=== PATIENT | male | born 1950 | race Hispanic/Latino ===

== ENCOUNTER 2019-05-07 10:59 | Inpatient (IN) | payer OTHER ==
[~2019-05-07] VITALS: Ht 175.3 cm; Wt 109.8 kg
[2019-05-07 11:29] LABS: BASOPHILS % (AUTO) 0.4 % (0.0-5.0); EOSINOPHILS % (AUTO) 0.3 % (0.0-8.0); LYMPHOCYTES % (AUTO) 27.8 % (21.0-51.0); MEAN CORPUSCULAR HEMOGLOBIN 28.6 pg (27.0-33.0); MEAN CORPUSCULAR HGB CONC 30.7 g/dL (32.0-36.0); MEAN CORPUSCULAR VOLUME 93.3 fL (79-99); MONOCYTES % (AUTO) 18.6 % (3.0-13.0); NEUTROPHILS % (AUTO) 52.5 % (40.0-77.0); PLATELET COUNT (AUTO) 213 K/uL (130-400); RED BLOOD CELL COUNT(AUTO) 4.93 MIL/uL (4.50-6.20); RED CELL DISTRIBUTION WIDTH 13.1 % (11.0-15.5); WHITE BLOOD COUNT (AUTO) 7.3 K/uL (4.8-10.8)
[2019-05-07] MEDS ORDERED: IPRATROPIUM/ALBUTEROL SULFATE 3 ML SOLUTION IH ONE (11:37)
[2019-05-07 11:46] LABS: POTASSIUM 4.1 mmol/L (3.5-5.1)
[2019-05-07 11:50] LABS: ALBUMIN 3.1 g/dL (3.5-5.0); BILIRUBIN,TOTAL 0.2 mg/dL (0.2-1.0); TOTAL PROTEIN, SERUM 7.6 g/dL (6.0-8.3)
[2019-05-07] MEDS ORDERED: METHYLPREDNISOLONE SOD SUCC 125MG/2ML VIAL ONE (11:52)
[2019-05-07] MEDS ORDERED: SODIUM CHLORIDE 0.9% 1000ML 1,000 ML IV ONE ×2 (13:59→23:43)
[2019-05-07] MEDS ORDERED: LEVOFLOXACIN 500 MG/D5W 100 ML 100 ML ONE (14:00)
[2019-05-07] MEDS ORDERED: METHYLPREDNISOLONE SOD SUCC 125MG/2ML VIAL IVP SCH (14:45)
[2019-05-07] MEDS ORDERED: DOXYCYCLINE 100MG+NS 250ML 250 ML IV SCH (14:45)
[2019-05-07 14:50] LABS: APPEARANCE,URINE Clear (CLEAR); BILIRUBIN,URINE Small (NEGATIVE); COLOR,URINE Dark Yellow (YELLOW); GLUCOSE, URINE (UA) Negative (NEGATIVE); KETONES,URINE 40 mg/dL (NEGATIVE); LEUKOCYTE ESTERASE ,URINE Negative (NEGATIVE); NITRATE,URINE Negative (NEGATIVE); OCCULT BLOOD,URINE Negative (NEGATIVE); PH,URINE 5.5 (5.0-8.0); PROTEIN,URINE POS 1+ mg/dL (NEGATIVE)
[2019-05-07 15:17] LABS: BACTERIA,URINE Few /HPF (None Seen); FINE GRANULAR CASTS,URINE 0-2 /LPF (None Seen); HYALINE CASTS, URINE 0-1 /LPF (0-1 /LPF); MUCUS,URINE Many LPF (None Seen); RBC,URINE None Seen /HPF (0-1); SQUAMOUS EPITHELIAL CELL,UR None Seen /HPF (0-2); WBC,URINE 0-1 /HPF (0-1)
[2019-05-07 15:38] LABS: ABG BASE EXCESS 10.2 mmol/L (-2.0-3.0); ABG HCO3 40.7 mmol/L (21.0-28.0); ABG OXYGEN SATURATION 96.9 % (95.0-99.0); ABG PCO2 85 mmHg (35-48)
[2019-05-07] MEDS ORDERED: DOXYCYCLINE 100MG+NS 250ML 250 ML IV ONE (16:10)
[2019-05-07] MEDS ORDERED: METHYLPREDNISOLONE SOD SUCC 40MG/ML 1ML ONE (16:54)
[2019-05-07] MEDS ORDERED: TIOT4MIS5 IH (17:12)
[2019-05-07] MEDS ORDERED: BUDE10.2 IH (17:12)
[2019-05-07] MEDS ORDERED: SERT100T12 PO (17:12)
[2019-05-07] MEDS ORDERED: ALBU90AE2 IH (17:12)
[2019-05-07] MEDS: IPRATROPIUM/ALBUTEROL SULFATE 3 ML SOLUTION IH SCH ×2 (19:49→22:10)
[2019-05-07] MEDS ORDERED: SODIUM CHLORIDE 0.9% 1000ML 1,000 ML IV SCH (23:00)
[2019-05-08] MEDS: IPRATROPIUM/ALBUTEROL SULFATE 3 ML SOLUTION IH SCH ×6 (01:57→21:59)
[2019-05-08] MEDS ORDERED: METHYLPREDNISOLONE SOD SUCC 125MG/2ML VIAL ONE (02:11)
[2019-05-08 05:43] LABS: BASOPHILS % (AUTO) 0.2 % (0.0-5.0); LYMPHOCYTES % (AUTO) 31.3 % (21.0-51.0); MEAN CORPUSCULAR HEMOGLOBIN 28.1 pg (27.0-33.0); MEAN CORPUSCULAR HGB CONC 30.7 g/dL (32.0-36.0); MEAN CORPUSCULAR VOLUME 91.5 fL (79-99); MONOCYTES % (AUTO) 9.9 % (3.0-13.0); NEUTROPHILS % (AUTO) 58.1 % (40.0-77.0); PLATELET COUNT (AUTO) 223 K/uL (130-400); RED BLOOD CELL COUNT(AUTO) 4.48 MIL/uL (4.50-6.20); RED CELL DISTRIBUTION WIDTH 12.7 % (11.0-15.5)
[2019-05-08 06:21] LABS: CREATININE 0.8 mg/dL (0.5-1.5); POTASSIUM 4.1 mmol/L (3.5-5.1)
[2019-05-08] MEDS ORDERED: METHYLPREDNISOLONE SOD SUCC 40MG/ML 1ML ONE (09:05)
[2019-05-08] MEDS ORDERED: CEFTRIAXONE SODIUM 500 MG VIAL ONE (09:05)
[2019-05-08] MEDS ORDERED: AZITHROMYCIN 500MG+NS 250ML 250 ML IV ONE (09:05)
[2019-05-08] MEDS ORDERED: IPRATROPIUM/ALBUTEROL SULFATE 3 ML SOLUTION IH ONE (10:02)
[2019-05-08 10:39] LABS: ABG BASE EXCESS 10.8 mmol/L (-2.0-3.0); ABG HCO3 37.9 mmol/L (21.0-28.0); ABG OXYGEN SATURATION 93.7 % (95.0-99.0); ABG PCO2 61 mmHg (35-48)
[2019-05-08] MEDS ORDERED: SODIUM CHLORIDE 3% FOR INHALATION 4 ML/AMP VIAL.NEB IH ONE ×2 (11:36→18:34)
--- NOTE | 2019-05-08 17:11 | NUR ---
INITIAL Patient lives with spouse, Jaida Maciel, [phone]. No home services. DME: walker with seat, cane, 3 in 1 BSC, O2 concentrator/portable. O2 arranged thru [facility] with [facility]. Patient is able to complete ADL's independently but does not drive. PCP is Dr. Jake Crawford at the [facility]. Patient is on the Blue Team. Pharmacy is [facility]. DCP is home. Addendum: 05/08/19 at 1713 by TAJ AMATO SS Amended: Links added.
[2019-05-08 18:30] VITALS: BP 111/68
--- NOTE | 2019-05-08 18:30 | NUR ---
PT AAO X3 REVIEW PLAN OF CARE, PT GETTING A RESP TREATMENT . IN PROCESS REVIEW FALL RISK AND CALL LIGHT IN REACH,
[2019-05-08] MEDS: BUDESONIDE 0.5 MG/2 ML INH IH SCH (18:53)
[2019-05-08 19:50] VITALS: BP 110/62
[2019-05-08] MEDS: METHYLPREDNISOLONE SOD SUCC 40MG/ML 1ML IVP SCH (20:02)
[2019-05-08 23:58] VITALS: BP 126/59
[2019-05-09] MEDS ORDERED: TIOTROPIUM BROMIDE 2.5 MCG IH PRN
[2019-05-09] MEDS: IPRATROPIUM/ALBUTEROL SULFATE 3 ML SOLUTION IH SCH ×6 (01:29→21:48)
[2019-05-09 04:00] VITALS: BP 144/82
[2019-05-09] MEDS: BUDESONIDE 0.5 MG/2 ML INH IH SCH ×2 (05:20→18:58)
[2019-05-09 05:59] LABS: BASOPHILS % (AUTO) 0.1 % (0.0-5.0); HEMATOCRIT 40.5 % (42-54); LYMPHOCYTES % (AUTO) 15.4 % (21.0-51.0); MEAN CORPUSCULAR HGB CONC 30.6 g/dL (32.0-36.0); MEAN CORPUSCULAR VOLUME 91.4 fL (79-99); MONOCYTES % (AUTO) 8.8 % (3.0-13.0); NEUTROPHILS % (AUTO) 75.3 % (40.0-77.0); PLATELET COUNT (AUTO) 240 K/uL (130-400); RED BLOOD CELL COUNT(AUTO) 4.43 MIL/uL (4.50-6.20); RED CELL DISTRIBUTION WIDTH 12.9 % (11.0-15.5); WHITE BLOOD COUNT (AUTO) 11.2 K/uL (4.8-10.8)
[2019-05-09 06:16] LABS: CREATININE 0.7 mg/dL (0.5-1.5); MAGNESIUM 2.3 mg/dL (1.80-2.40); PHOSPHORUS 2.6 mg/dL (2.5-4.9); POTASSIUM 4.5 mmol/L (3.5-5.1)
[2019-05-09 08:20] VITALS: BP 132/76
[2019-05-09] MEDS: AZITHROMYCIN 500MG+NS 250ML 250 ML IV SCH ×2 (08:31→08:40)
[2019-05-09] MEDS: METHYLPREDNISOLONE SOD SUCC 40MG/ML 1ML IVP SCH (08:31)
[2019-05-09] MEDS: CEFTRIAXONE SODIUM 1 GM IV SCH ×2 (08:31→08:40)
[2019-05-09] MEDS: SERTRALINE HCL 50 MG TABLET PO SCH (08:32)
[2019-05-09 12:04] VITALS: BP 133/60
[2019-05-09 16:45] VITALS: BP 115/55
[2019-05-09 20:01] VITALS: BP 143/75
[2019-05-10 00:10] VITALS: BP 128/74
[2019-05-10] MEDS: DOXYCYCLINE HYCLATE 100 MG TABLET PO SCH ×2 (02:48→08:40)
[2019-05-10] MEDS: IPRATROPIUM/ALBUTEROL SULFATE 3 ML SOLUTION IH SCH ×4 (02:54→14:08)
[2019-05-10 04:00] VITALS: BP 135/68
[2019-05-10 04:55] LABS: BASOPHILS % (AUTO) 0.2 % (0.0-5.0); HEMATOCRIT 40.1 % (42-54); LYMPHOCYTES % (AUTO) 28.3 % (21.0-51.0); MEAN CORPUSCULAR HEMOGLOBIN 28.4 pg (27.0-33.0); MEAN CORPUSCULAR HGB CONC 31.4 g/dL (32.0-36.0); MEAN CORPUSCULAR VOLUME 90.5 fL (79-99); MONOCYTES % (AUTO) 12.3 % (3.0-13.0); NEUTROPHILS % (AUTO) 58.5 % (40.0-77.0); PLATELET COUNT (AUTO) 229 K/uL (130-400); RED BLOOD CELL COUNT(AUTO) 4.43 MIL/uL (4.50-6.20)
[2019-05-10 05:17] LABS: CREATININE 0.8 mg/dL (0.5-1.5); POTASSIUM 3.5 mmol/L (3.5-5.1)
[2019-05-10] MEDS: BUDESONIDE 0.5 MG/2 ML INH IH SCH (06:23)
[2019-05-10 08:30] VITALS: BP 138/58
[2019-05-10] MEDS: SERTRALINE HCL 50 MG TABLET PO SCH (08:40)
[2019-05-10] MEDS ORDERED: PREDNISONE 20 MG TABLET PO SCH (09:00)
[2019-05-10 11:33] VITALS: BP 150/99
[2019-05-10] MEDS ORDERED: PRED20TA3 PO ×2 (13:36→15:00)
[2019-05-10] MEDS ORDERED: DOXY100T2 PO (13:36)
== END 2019-05-10 15:34 | disposition home or self-care (01) | DRG 189 ==
LOC: EDH 10:59 → EDHIP 14:39 → 4DH 05-08 18:14
PROVIDERS: ADMIT Internal Medicine; ATTEND Internal Medicine
PROC: 5A09357 Assistance with Respiratory Ventilation, Less than 24 Consecutive Hours, Continuous Positive Airway Pressure (ICD-10-PCS; principal; 2019-05-08)
PROC: 5A09357 Assistance with Respiratory Ventilation, Less than 24 Consecutive Hours, Continuous Positive Airway Pressure (ICD-10-PCS; 2019-05-09)
PROC: 5A09357 Assistance with Respiratory Ventilation, Less than 24 Consecutive Hours, Continuous Positive Airway Pressure (ICD-10-PCS; 2019-05-10)
DX: J96.21 Acute and chronic respiratory failure with hypoxia (principal); J43.9 Emphysema, unspecified; J96.22 Acute and chronic respiratory failure with hypercapnia; E86.0 Dehydration; K21.9 Gastro-esophageal reflux disease without esophagitis; E66.01 Morbid (severe) obesity due to excess calories; H93.19 Tinnitus, unspecified ear; M47.9 Spondylosis, unspecified; F43.10 Post-traumatic stress disorder, unspecified; H91.90 Unspecified hearing loss, unspecified ear; M45.9 Ankylosing spondylitis of unspecified sites in spine; Z79.51 Long term (current) use of inhaled steroids; Z87.891 Personal history of nicotine dependence; Z68.35 Body mass index [BMI] 35.0-35.9, adult; Z99.81 Dependence on supplemental oxygen; Z90.49 Acquired absence of other specified parts of digestive tract
CPT/HCPCS: 36415; 36600; 71045; 80048; 80053; 81001; 82435; 82550; 82803; 82947; 83605; 83735; 83880; 84100; 84132; 84145; 84295; 84484; 85018; 85025; 87040; 87071; 87205; 87486; 87581; 87633; 87798; 87804; 93005; 94640; 94660; 94664; 94760; G0378; J0456; J0696; J1956; J2920; J2930; J3490; J7030